=== PATIENT | male | born 1950 | race Hispanic/Latino ===

== ENCOUNTER 2017-02-13 20:49 | Emergency (ER) | payer MEDICARE, OTHER ==
[~2017-02-13 20:49] MED LIST: ADRENALIN ONE; SODIUM BICARBONATE IV ONE
--- NOTE | 2017-02-13 21:14 | Emergency Department Report ---
HPI - General Chief Complaint: Cardiac Arrest/CPR Time Seen by Provider: 02/13/17 20:58 - HPI HPI: Room 21 The patient is a 66-year-old male presenting with a chief complaint cardiac arrest. EMS states the patient was on the phone with his at approximately 20:00 when he dropped the phone stopped speaking. The states she came home and found the patient unresponsive with his eyes open. EMS was called and arrived on scene at 20:24 the front the patient in asystole. ACLS protocols were initiated in the patient was intubated. EMS states patient into V. fib and defibrillated once returning to asystole. Upon arrival to the ED the patient remained asystolic and ACLS protocols were continued without return of spontaneous circulation Location: Cardiovascular system Duration: [see above] Quality: Asystole Severity: Severe Modifying factors: [see above] Context: [see above] Mode of transportation: EMS ED Past Medical Hx - Past Medical History Additional medical history: CHF, A. fib - Surgical History Past Surgical History?: No - Family History Family history: no significant - Social History Smoking Status: Unknown if ever smoked Substance Use Type: None ED Review of Systems ROS: Stated complaint: CARDIAC ARREST Other details as noted in HPI Comment: Unobtainable due to pts medical conditions Physical Exam - Physical Exam Physical Exam: GENERAL: The patient is well-developed well-nourished male lying on stretcher receiving chest compressions by EMS and being bagged via ET tube. [] HEENT: Normocephalic. Atraumatic. Pupils 5 mm and nonreactive bilaterally NECK: Supple. Trachea midline CHEST/LUNGS: No spontaneous respirations. Breath sounds equal bilaterally with bagging through ET tube HEART/CARDIOVASCULAR: No heart sounds. Asystole on monitor ABDOMEN: There is no abdominal distention. SKIN: There is no diaphoresis. NEURO: GCS 3T MUSCULOSKELETAL: There is no evidence of acute injury. ED Medical Decision Making - Differential Diagnosis cardiac arrest Critical care attestation.: If time is entered above; I have spent that time in minutes in the direct care of this critically ill patient, excluding procedure time. ED Disposition Clinical Impression: Cardiac arrest Disposition: MEDICAL FACILITY Is pt being admited?: No Does the pt Need Aspirin: No Condition: Poor Time of Disposition: 20:58 (patient )
[2017-02-13] MEDS ORDERED: HYDROGEN PEROXIDE TP ONE (21:38)
[2017-02-14] MEDS ORDERED: LASIX ONE (03:44)
[2017-02-14] MEDS ORDERED: TRIDIL DRIP 50MG/250ML 0 MG/0 ML BOTTLE ONE (03:44)
== END 2017-02-14 01:30 ==
LOC: ED 20:49
DX: I46.9 Cardiac arrest, cause unspecified (principal); I50.9 Heart failure, unspecified; I48.91 Unspecified atrial fibrillation; Z88.8 Allergy status to other drugs, medicaments and biological substances
CPT/HCPCS: 99285; J0171; J1940